=== PATIENT | female | born 1950 | race Caucasian/White ===

== ENCOUNTER → 2022-12-21 09:25 | Outpatient (BNVA) | payer OTHER, SELFPAY | PROVIDERS: PCP Family Medicine; Visit Provider Family Medicine | DX: E78.5 Hyperlipidemia, unspecified (principal); E03.9 Hypothyroidism, unspecified; M48.061 Spinal stenosis, lumbar region without neurogenic claudication | CPT/HCPCS: 80053; 80061; 84443; 85025 ==

== ENCOUNTER 2023-01-05 06:40 | Day surgery (SDC) | payer MEDICARE, SELFPAY ==
--- NOTE | 2023-01-05 05:53 | W.PM.OPSFHP ---
Same Day Surgery H&P Indication for Procedure/HPI DATE OF PROCEDURE: January 05, 2023 CHIEF COMPLAINT/INDICATIONFOR SURGICAL PROCEDURE: positive cologuard PREOP DIAGNOSIS: positive cologuard PLANNED PROCEDURE: Operation Date: 01/05/23 07:40 Proposed Procedures p Colonoscopy 16872,R19.5(Not Applicable) - Ángel Jones MD Medications/Allergies* Home Medications Medication Instructions Recorded Confirmed Type levothyroxine 75 mcg capsule 75 mcg PO DAILY 10/19/22 01/03/23 History sertraline 50 mg tablet 50 mg PO DAILY 10/19/22 01/03/23 History Allergies/Adverse Reactions Allergy/AdvReac Type Severity Reaction Status Date / Time Hduywtr-FON-VeZ Reductase Allergy Intermediate MUSCLE PAIN Verified 01/03/23 13:11 Inhibitor Pertinent History/Comorbid Conditions* Medical History (Updated 12/21/22 @ 09:19 by Arabella Calzada DO) Acquired hypothyroidism Anxiety and depression Dyslipidemia Surgical History (Updated 12/21/22 @ 09:12 by Arabella Calzada DO) History of hysterectomy Due to endometriosis History of open reduction and internal fixation (ORIF) procedure left elbow Hx of colonoscopy Family History (Updated 10/19/22 @ 11:37 by Lidia Hernandez LPN) Father Mother Natural with proved cause without autopsy Father Hypertension Mother Pertinent Exam Findings alert, oriented x 3, clear to auscultation bilaterally and regular rate & rhythm Recommendations Surgery/Procedure today Coding Level of Care Code Acute Code for Chg Fwd Diagnoses
[2023-01-05 06:54] VITALS: BP 119/87; PULSE 86; RESP 16; TEMP 36.6; O2SAT 96
[2023-01-05 06:57] VITALS: BMI 31.9
[2023-01-05] MEDS: sodium chloride 0.9% 1,000 ML 30 ML IV (07:04)
--- NOTE | 2023-01-05 07:05 | ANES.PREANE2 ---
Pre-Anesthetic Assessment Height/Weight: Height 1.73 m Weight 95.254 kg Temp Pulse Resp BP Pulse Ox O2 Del Method 97.9 F 86 16 119/87 96 Room Air 01/05/23 06:54 01/05/23 06:54 01/05/23 06:54 01/05/23 06:54 01/05/23 06:54 01/05/23 06:54 Preop Diagnosis: positive cologuard Operation Date: 01/05/23 07:40 Proposed Procedures p Colonoscopy 77824,R19.5(Not Applicable) - Ángel Jones MD Familial anesthetic complications: None Was Beta Desirae taken within 24 hours: N/A Was Clonidine taken within 24 hours: N/A Last intake: Intake Last Liquid Date 01/04/23 Last Liquid Time 21:00 Last Solid Date 01/03/23 Social No alcohol and No tobacco Exam alert, oriented x 3, clear to auscultation bilaterally and regular rate & rhythm Airway Mallampati: Class II Dentition: full Metabolic Thyroid Disease Anesthetic Plan ASA status: 2 Anesthesia: MAC Risk of > 500 ml blood loss (7ml/kg in children): No Medications/Allergies Home Medications Medication Instructions Recorded Confirmed Last Taken Type levothyroxine 75 mcg capsule 75 mcg PO DAILY 10/19/22 01/05/23 01/04/23 History sertraline 50 mg tablet 50 mg PO DAILY 10/19/22 01/05/23 01/03/23 History celecoxib 100 mg capsule (Celebrex) 100 mg PO DAILY #90 caps 12/21/22 01/05/23 01/03/23 Rx Allergies Allergy/AdvReac Type Severity Reaction Status Date / Time Nlriofd-EOF-UuZ Reductase Allergy Intermediate MUSCLE PAIN Verified 01/05/23 06:53 Inhibitor Current Medications Generic Name Dose Route Start Last Admin Trade Name Freq PRN Reason Stop Dose Admin Sodium Chloride 1,000 mls @ 30 mls/hr 01/05/23 07:00 01/05/23 07:04 Sodium Chloride 0.9% IV 30 mls/hr .Q24H NICANOR Administration PFSH Anesthesia Medical History (Updated 12/21/22 @ 09:19 by Arabella Calzada DO) Acquired hypothyroidism Anxiety and depression Dyslipidemia Surgical History (Updated 12/21/22 @ 09:12 by Arabella Calzada DO) History of hysterectomy Due to endometriosis History of open reduction and internal fixation (ORIF) procedure left elbow Hx of colonoscopy Family History Mother Hypertension Father Natural with proved cause without autopsy Data Anesthesia Cardiac Studies: No Data to Display
[2023-01-05 08:08] VITALS: BP 123/72; PULSE 65; RESP 16; TEMP 36.1; O2SAT 96
--- NOTE | 2023-01-05 08:09 | ANE.PACU2 ---
Inpatient post-anesthesia follow up: Airway intact: Yes Vital signs: Temperature 97.9 F Pulse Rate 86 Respiratory Rate 16 Blood Pressure 119/87 Pulse Oximetry 96 Oxygen Delivery Me thod Room Air Oxygen Flow Rate Fraction of Inspir ed Oxygen Hydration adequate: Yes Nausea and vomiting: No Pain level: 1 Mental status: Baseline
[2023-01-05 08:24] VITALS: BP 116/88; PULSE 73; RESP 16; O2SAT 97
== END 2023-01-05 08:33 | disposition home or self-care (01) ==
PROVIDERS: PCP Family Medicine; Visit Provider Surgery
PROC: 0DJD8ZZ Inspection of Lower Intestinal Tract, Via Natural or Artificial Opening Endoscopic (ICD-10-PCS; CPT 45378; principal; 2023-01-05 07:40)
DX: R19.5 Other fecal abnormalities (principal); K57.30 Diverticulosis of large intestine without perforation or abscess without bleeding; E03.9 Hypothyroidism, unspecified; E78.5 Hyperlipidemia, unspecified
CPT/HCPCS: 45378; G0121; J2704; J7030

== ENCOUNTER 2023-02-21 08:10 | Outpatient (CLI) | payer MEDICARE, SELFPAY ==
--- NOTE | 2023-02-21 08:13 | MM_ITS ---
WS: [id number] Bilateral screening 3D tomosynthesis digital mammogram, 2 02/21/2023 Clinical Data: screening Comparison: None. Findings: The breast parenchymal pattern shows fibroglandular tissue. No spiculated masses or clustered calcifi cations are seen. There are no secondary signs of carcinoma. There are lymph nodes in both axilla. Impression: 1. Negative bilateral mammogram with no prior exam for review. 2. Recommend annual screening mammograms. MM/[place] [id number] BIRADS: 1-Negative FOLLOW UP: 1 Year Follow-up The CAD traffic checker was used.
== END 2023-02-21 08:11 | disposition home or self-care (01) ==
LOC: RAD 08:11
PROVIDERS: PCP Family Medicine; Visit Provider Family Medicine
DX: Z12.31 Encounter for screening mammogram for malignant neoplasm of breast (principal)
CPT/HCPCS: 77063; 77067

== ENCOUNTER → 2023-06-25 09:55 | Outpatient (BNVA) | payer MEDICARE, SELFPAY | PROVIDERS: PCP Family Medicine; Visit Provider Family Medicine | DX: E03.9 Hypothyroidism, unspecified (principal); M54.41 Lumbago with sciatica, right side; G89.29 Other chronic pain | CPT/HCPCS: 80053; 84443 ==

== ENCOUNTER → 2024-04-14 08:53 | Outpatient (BNVA) | payer MEDICARE, SELFPAY | PROVIDERS: PCP Family Medicine; Visit Provider Family Medicine | DX: E78.5 Hyperlipidemia, unspecified (principal); E03.9 Hypothyroidism, unspecified; N18.2 Chronic kidney disease, stage 2 (mild); R25.2 Cramp and spasm | CPT/HCPCS: 80053; 80061; 84439; 84443; 85025 ==

== ENCOUNTER → 2024-10-13 08:43 | Outpatient (BNVA) | payer MEDICARE, SELFPAY | PROVIDERS: PCP Family Medicine; Visit Provider Family Medicine | DX: R25.2 Cramp and spasm (principal); E03.9 Hypothyroidism, unspecified | CPT/HCPCS: 84439; 84443 ==

== ENCOUNTER 2024-10-22 08:31 | Outpatient (CLI) | payer MEDICARE, SELFPAY ==
--- NOTE | 2024-10-22 08:40 | MM_ITS ---
WS: [id number] SCREENING DIGITAL BREAST TOMOSYNTHESIS MAMMOGRAM WITH CAD HISTORY: screening COMPARISON: 02/21/2023 Bilateral CC and MLO with tomosynthesis and synthetic mammography submitted. Computer aided detection analyzed. Breast composition: There are scattered areas of fibroglandular density. Increasing asymmetry in the upper outer quadrant of the LEFT breast at middle depth. There are benign calcifications in each breast. No architectural distortion. MM/MM scr BI tomosynthesis [id number] IMPRESSION: BI-RADS: 0 - Incomplete: Need additional imaging evaluation. FOLLOW UP: Need Additional Imaging LEFT breast: Spot compression views (CC and MLO). True ML. Ultrasound to follow if abnormality persists.
== END 2024-10-22 08:32 | disposition home or self-care (01) ==
LOC: RAD 08:31
PROVIDERS: PCP Family Medicine; Visit Provider Family Medicine
DX: Z12.31 Encounter for screening mammogram for malignant neoplasm of breast (principal); R92.323 Mammographic fibroglandular density, bilateral breasts; N64.89 Other specified disorders of breast; R92.1 Mammographic calcification found on diagnostic imaging of breast
CPT/HCPCS: 77063; 77067

== ENCOUNTER 2024-10-27 11:47 | Outpatient (RCR) | payer MEDICARE, SELFPAY | END 2024-11-18 11:13 | disposition home or self-care (01) | LOC: SPT 11:47 | PROVIDERS: PCP Family Medicine; Visit Provider Family Medicine | DX: M54.50 Low back pain, unspecified (principal); G89.29 Other chronic pain | CPT/HCPCS: 97110; 97161; G0283 ==

== ENCOUNTER 2024-11-04 10:01 | Outpatient (CLI) | payer MEDICARE, SELFPAY ==
--- NOTE | 2024-11-04 10:30 | MM_ITS ---
WS: [id number] ADDITIONAL VIEWS LEFT MAMMOGRAM WITH DIGITAL BREAST TOMOSYNTHESIS. LEFT breast ultrasound, limited HISTORY: abnormal mammo COMPARISON: 10/22/2024, 02/21/2023 Spot compression views LEFT breast in CC, MLO projections and true ML submitted with digital breast tomosynthesis and SM. Breast composition: There are scattered areas of fibroglandular density. The asymmetry persists in the lateral LEFT breast at 3:00 at a posterior depth. Asymmetry measures 7 x 8 x 10 mm. No associated calcifications. No distortion. This is a very subtle finding with only slight increased density as compared to the adjacent breast parenchyma. LEFT breast ultrasound, limited. No abnormality identified within the LEFT breast from 2-4 o'clock. There is no shadowing or mass. MM/MM diag LT tomosynthesis [id number] IMPRESSION: BI-RADS: 3 - Probably Benign. FOLLOW UP: 6 Month Follow-up Recommend diagnostic LEFT mammogram follow-up and possible ultrasound in 6 reese hs. Very vague asymmetry persists in the lateral LEFT breast mammogram but not identified on ultrasound. Recommend 6-month follow-up. This is very subtle and may be normal fibroglandular density for this patient.
--- NOTE | 2024-11-04 11:00 | US_ITS ---
WS: [id number] ADDITIONAL VIEWS LEFT MAMMOGRAM WITH DIGITAL BREAST TOMOSYNTHESIS. LEFT breast ultrasound, limited HISTORY: abnormal mammo COMPARISON: 10/22/2024, 02/21/2023 Spot compression views LEFT breast in CC, MLO projections and true ML submitted with digital breast tomosynthesis and SM. Breast composition: There are scattered areas of fibroglandular density. The asymmetry persists in the lateral LEFT breast at 3:00 at a posterior depth. Asymmetry measures 7 x 8 x 10 mm. No associated calcifications. No distortion. This is a very subtle finding with only slight increased density as compared to the adjacent breast parenchyma. LEFT breast ultrasound, limited. No abnormality identified within the LEFT breast from 2-4 o'clock. There is no shadowing or mass. US/US breast LT limited* [id number] IMPRESSION: BI-RADS: 3 - Probably Benign. FOLLOW UP: 6 Month Follow-up Recommend diagnostic LEFT mammogram follow-up and possible ultrasound in 6 reese hs. Very vague asymmetry persists in the lateral LEFT breast mammogram but not identified on ultrasound. Recommend 6-month follow-up. This is very subtle and may be normal fibroglandular density for this patient.
== END 2024-11-04 10:02 | disposition home or self-care (01) ==
LOC: RAD 10:04
PROVIDERS: PCP Family Medicine; Visit Provider Family Medicine
DX: N63.20 Unspecified lump in the left breast, unspecified quadrant (principal)
CPT/HCPCS: 76642; 77061; G0279